=== PATIENT | female | born 1965 | race Caucasian/White ===

== ENCOUNTER → 2017-02-25 | Outpatient (CLI) | payer OTHER ==
[~2017-02-25] MED LIST: ATIVAN 0.50.5 MG/TAB PO; FIORICET 325 MG1 TA1 PO; KLONOPIN 0.5MG0.5 MG PO; MULTI VITAMINS1 TAB PO; NORCO 325 MG-51 TAB PO; ULTRAM 50MG TAB50 MG PO; ZANTAC 150MG T150 MG PO
== END ==
LOC: COL.RAD 14:05
DX: M19.011 Primary osteoarthritis, right shoulder (principal)
CPT/HCPCS: A9585; Q9967

== ENCOUNTER → 2018-06-24 | Outpatient (CLI) | payer BC | LOC: MC.RAD 09:17 | DX: N63.20 Unspecified lump in the left breast, unspecified quadrant (principal) | CPT/HCPCS: G0279 ==

== ENCOUNTER 2020-05-02 20:15 | Observation (INO) | payer BC ==
[~2020-05-02] VITALS: Ht 177.8 cm; Wt 174.4 kg
[2020-05-02] MEDS ORDERED: NEURONTIN100 MG/CAP PO (23:06)
[2020-05-02] MEDS ORDERED: EMGALITY120 MG/1 M SQ (23:07)
[2020-05-02] MEDS ORDERED: ZANAFLEX CAPSULE2 MG PO (23:08)
[2020-05-02 23:10] LABS: BASO % 0.3 % (0.0-2.0); EOS # 0.2 (0.0-0.7); EOS % 1.4 % (0-4.0); GRAN % 64.8 % (42.2-75.2); HEMATOCRIT 43.4 % (37.0-47.0); HEMOGLOBIN 13.8 g/dl (12.5-16.0); LYMPH # 3.5 (1.2-3.4); LYMPH % 25.2 % (20.0-51.0); MEAN CELL VOLUME 91 fl (80.0-100.0); MEAN CORPUSCULAR HEMOGLOBIN 29 pg (27.0-31.0); MEAN CORPUSCULAR HGB CONC 32 g/dl (33.0-37.0); MEAN PLATELET VOLUME 9.1 fl (7.4-10.4); MONO # 1.1 (0.1-0.6); MONO % 7.7 % (1.7-9.3); PLATELET COUNT 258 K/mm3 (130-400); RED BLOOD COUNT 4.75 M/mm3 (4.10-5.30); REDCELL DISTRIBUTION WIDTH-CV 15.6 % (11.5-14.5)
[2020-05-02] MEDS ORDERED: CYMBALTA 60MG60 MG PO (23:10)
[2020-05-02 23:20] LABS: CALCIUM 9.3 mg/dL (8.4-10.2); CREATININE, serum 0.77 (0.52-1.25); POTASSIUM 3.8 mmol/L (3.4-5.0)
[2020-05-03] MEDS ORDERED: ONE-A-DAY ESSE1 EACH PO (00:16)
[2020-05-03] MEDS ORDERED: CRANBERRY500 M3 PO (00:21)
[2020-05-03] MEDS ORDERED: MASON NATURAL2000 IU PO (00:21)
[2020-05-03 00:51] VITALS: BP 132/70; PULSE 72; TEMP 97.8
--- NOTE | 2020-05-03 03:52 | NUR ---
Patient to room 329 at 2350. States she has pain to right knee after feeling a pop when getting out of her vehicle and hasn't been able to walk since. PRN pain medication administered about 0215. Noted to be effective as patient was sleeping upon reassessment. Scheduled for MRI this AM. Ortho to see patient. Takes pills whole with water. SCDS applied. 5 page, infectious disease assessments, and med rec completed with patient. Will continue to monitor patient.
[2020-05-03 04:54] VITALS: BP 136/78; PULSE 70; TEMP 98
[2020-05-03 07:09] LABS: BASO % 0.3 % (0.0-2.0); EOS # 0.2 (0.0-0.7); EOS % 2.2 % (0-4.0); GRAN # 4.8 (1.4-6.5); GRAN % 55.4 % (42.2-75.2); HEMATOCRIT 41.9 % (37.0-47.0); HEMOGLOBIN 13.2 g/dl (12.5-16.0); LYMPH # 2.9 (1.2-3.4); LYMPH % 33.5 % (20.0-51.0); MEAN CELL VOLUME 92 fl (80.0-100.0); MEAN CORPUSCULAR HEMOGLOBIN 29 pg (27.0-31.0); MEAN CORPUSCULAR HGB CONC 32 g/dl (33.0-37.0); MONO # 0.7 (0.1-0.6); MONO % 7.9 % (1.7-9.3); PLATELET COUNT 236 K/mm3 (130-400); RED BLOOD COUNT 4.54 M/mm3 (4.10-5.30); REDCELL DISTRIBUTION WIDTH-CV 15.7 % (11.5-14.5)
[2020-05-03 07:12] LABS: CALCIUM 8.7 mg/dL (8.4-10.2); CREATININE, serum 0.71 (0.52-1.25); POTASSIUM 3.7 mmol/L (3.4-5.0)
[2020-05-03 08:31] VITALS: BP 136/80; PULSE 78; TEMP 98.2
--- NOTE | 2020-05-03 11:05 | NUR ---
Paediatric Thoracic Physician met with patient to discuss discharge planning. Patient lives in [place] with her , Santino (ph#[phone]) and sees Dr. Roy for primary care. Patient obtains medications from [facility] with no difficulties. Patient does not use any DME and is normally independent with ADLS. Patient does not have Advance Directives but was interested in setting up [facility]PO[facility]. Patient would like to designate Santino and her daughter, Lisa (ph#[phone]). SW assisted patient in completing DPOA-HC form then THEE and ANABEL Moore provided witness signatures. SW provided original and copies to patient then placed a copy on patient's chart. Patient plans to return home at discharge. PT/OT and Ortho consult ordered. SW will continue to follow.
[2020-05-03 13:25] VITALS: BP 115/66; PULSE 68; TEMP 97.7
--- NOTE | 2020-05-03 14:30 | NUR ---
PATIENT ASSISTED TO BEDSIDE COMMODE TO VOID WITH ONE ASSIST AND GAIT BELT. PATIENT TOLERATED ACTIVITY. WAITING FOR MRI
--- NOTE | 2020-05-03 15:44 | NUR ---
PATIENT BACK IN ROOM FROM MRI
[2020-05-03 17:20] VITALS: BP 150/87; PULSE 79; TEMP 97.6
--- NOTE | 2020-05-03 20:10 | NUR ---
Pt. laying in bed. Pt. is A&OX3, assessment complete. INT to rt. hand patent. Pt. reports pain to rt. knee at a 8 on pain scale, will give pain meds per orders. Pt. denies further needs, call light within reach.
[2020-05-03 20:53] VITALS: BP 144/73; PULSE 78; TEMP 98.1
[2020-05-04 00:03] VITALS: BP 165/86; PULSE 82; TEMP 97.6
[2020-05-04 04:38] VITALS: BP 136/71; PULSE 73; TEMP 97.5
[2020-05-04 07:57] VITALS: BP 123/61; PULSE 80; TEMP 98
--- NOTE | 2020-05-04 08:00 | NUR ---
Patient in bed resting. Alert and oriented x 3. Assessment complete. Denies pain at this time. Denies further needs at this time.
--- NOTE | 2020-05-04 08:45 | NUR ---
Contacted [facility] with ortho, they will follow up with patient outpatient.
--- NOTE | 2020-05-04 09:23 | NUR ---
Hospitalist in to see patient.
[2020-05-04 12:31] VITALS: BP 114/53; PULSE 82; TEMP 97.8
[2020-05-04] MEDS ORDERED: NORCO 325 MG-51 TAB PO (13:58)
--- NOTE | 2020-05-04 14:40 | NUR ---
Discharge education provided to patient. Educated on new medications and scheduling follow up appointments. INT discontinued, catheter tip intact. Denies further needs at this time. All questions answered, patient will call when ride is here.
--- NOTE | 2020-05-04 15:45 | NUR ---
Patient out by wheelchair with. Denies further needs at this time.
== END 2020-05-04 15:45 | disposition home or self-care (01) ==
LOC: COL.ER 20:15 → JCC 22:55
PROVIDERS: Emergency Medicine; Nurse Practitioner Family; ADMIT Hospitalist
DX: M25.461 Effusion, right knee (principal); M17.11 Unilateral primary osteoarthritis, right knee; D72.829 Elevated white blood cell count, unspecified; E66.01 Morbid (severe) obesity due to excess calories; F17.210 Nicotine dependence, cigarettes, uncomplicated; Z80.8 Family history of malignant neoplasm of other organs or systems; F41.9 Anxiety disorder, unspecified; F32.9 Major depressive disorder, single episode, unspecified; K21.9 Gastro-esophageal reflux disease without esophagitis; Z79.899 Other long term (current) drug therapy
CPT/HCPCS: G0378; J1650; J1885

== ENCOUNTER → 2021-11-12 | Outpatient (CLI) | payer OTHER ==
[~2021-11-12] MED LIST changes: +CRANBERRY500 M3 PO; +CYMBALTA 60MG60 MG PO; +EMGALITY120 MG/1 M SQ; +MASON NATURAL2000 IU PO; +NEURONTIN100 MG/CAP PO; +ONE-A-DAY ESSE1 EACH PO; +ZANAFLEX CAPSULE2 MG PO
== END ==
LOC: COL.RAD 10:07
DX: M47.816 Spondylosis without myelopathy or radiculopathy, lumbar region (principal); M53.3 Sacrococcygeal disorders, not elsewhere classified

== ENCOUNTER → 2024-07-07 | Day surgery (SDC) | payer BC ==
[~2024-07-07] VITALS: Ht 175.3 cm; Wt 171.0 kg
[~2024-07-07] MED LIST changes: +ADIPEX-P37.5 M2 PO; +CEPHALEXIN500 M1 PO; +GLUCOPHAGE500 MG/TAB PO; +HYDROmorphone 1 MG/1 ML SYRINGE [PACU/SDC ONLY] IV PRN; +LINZESS145CAP PO; +LR 1,000 ML IV SCH; +Lidocaine PF 2% (20 MG/ML) 5 ML VIAL ONE; +Meperidine 50 MG/ML 1 ML VIAL IV PRN; +Midazolam 2 MG/2 ML VIAL ONE; +Morphine 2 MG/1 ML VIAL [PACU/SDC ONLY] IV PRN; +NATURE'S BLEND500 M1 PO; +Ondansetron 4 MG/2 ML VIAL IV PRN; +TURMERIC500 MG PO; +VOLTAREN 50MG T50 MG PO; +droPERidol 2.5 MG/ML 2 ML VIAL IV PRN; +fentaNYL 50 MCG/ML 1 ML SYRINGE/VIAL [PACU/SDC ONLY] IV PRN; +fentaNYL 50 MCG/ML 2 ML VIAL ONE; +oxyCODONE/Acetaminophen 5-325 MG TAB PO PRN
[2024-07-07 07:47] VITALS: BP 134/86; PULSE 84; TEMP 98.8
[2024-07-07 09:26] VITALS: BP 105/78; PULSE 72; TEMP 97.9
--- NOTE | 2024-07-07 09:26 | NUR ---
PATIENT RETURNED TO ROOM 7 VIA CART. 0932: PATIENT ALERT AND ORIENTED X3. DENIES NAUSEA AND SHORTNESS OF BREATH. RATES PAIN TOLERABLE 2/10 TO RIGHT WRIST. STATES NUMBNESS TO RIGHT FINGERS. ABLE TO MOVE RIGHT FINGERS FREELY. BILATERAL RADIAL PULSES 2+. BILATERAL FINGERS CAPILLARY REFILL <3 SECONDS. SKIN WARM AND DRY. VISIBLE ISAAC WRAP TO RIGHT WRIST-DRESSING IS CLEAN, DRY AND INTACT. PATIENT BREATHING REGULAR/UNLABORED ON ROOM AIR. NURSE HANDOFF COMPLETED IN ROOM. SEE CHART FOR VITAL SIGNS. PATIENT HAD WATER AND JELLO. ICE PACK APPLIED TO RIGHT WRIST. PATIENT DENIES ADDITIONAL INTERVENTIONS. CALL LIGHT IN REACH. SPOUSE, DAMI, PRESENT IN ROOM.
[2024-07-07 09:45] VITALS: BP 121/78; PULSE 70
[2024-07-07 10:00] VITALS: BP 120/73; PULSE 67
[2024-07-07 10:15] VITALS: BP 121/80; PULSE 66
--- NOTE | 2024-07-07 10:38 | NUR ---
1028: DISCHARGE TEACHING COMPLETED WITH PRINTED EDUCATION AND INSTRUCTIONS SENT HOME WITH PATIENT. PATIENT AND SPOUSE VERBALIZED UNDERSTANDING. 1029: PAIN RATING 2/10 TO RIGHT WRIST. PATIENT STATES PAIN IS TOLERABLE, DENIES INTERVENTIONS. TOLERATING FOOD/DRINK. RIGHT WRIST ISAAC WRAP CLEAN, DRY AND INTACT. LEFT AC IV REMOVED. GAUZE AND COBAN PLACED OVER SITE. 1038: PATIENT DISCHARGED HOME WITH SPOUSE, DAMI, TRANSPORT.
== END ==
LOC: SDCO 06:28
DX: G56.01 Carpal tunnel syndrome, right upper limb (principal); E66.01 Morbid (severe) obesity due to excess calories; F17.210 Nicotine dependence, cigarettes, uncomplicated; Z79.82 Long term (current) use of aspirin; Z68.43 Body mass index [BMI] 50.0-59.9, adult
CPT/HCPCS: J0665; J0690; J1580; J2250; J2704; J3010; J7120